=== PATIENT | male | born 1955 | race Caucasian/White ===

== ENCOUNTER 2024-09-04 11:39 | Emergency (ER) | payer OTHER, SELFPAY ==
[2024-09-04] VITALS (18 sets, daily range): BP systolic 161–178; BP diastolic 67–90; BMI 21.8
[2024-09-04 11:52] LABS: Glucose - Point of Care 113 mg/dl (70-99)
[2024-09-04 12:20] LABS: % Basophils 0.7 % (0-2); % Eosinophils 0.8 % (0-6); % Immature Granulocytes 0.5 % (0-0.5); % Monocytes 12.7 % (1.7-9.3); % Neutrophils 65.3 % (42.2-75.2); Absolute Basophils 0.1 10^3/uL (0-0.2); Absolute Eosinophils 0.1 10^3/uL (0-0.7); Absolute Lymphocytes 1.5 10^3/uL (1.2-3.4); Absolute Monocytes 0.9 10^3/uL (0.1-0.6); Absolute Neutrophils 4.8 10^3/uL (1.4-6.5); Hematocrit 23.5 % (39.0-52.0); Mean Corp Hgb Conc. 25.5 g/dL (33.0-37.0); Mean Corpuscular Hgb 14.9 pg (27.0-31.0); Mean Corpuscular Volume 58.2 fL (80.0-94.0); Mean Platelet Volume 8.1 fL (7.4-10.4); Nucleated Red Blood Cells % 0 % (-); Platelet Count 269 10^3/uL (130-400); Red Blood Cell Count 4.04 10^6/uL (4.70-6.10); Red Cell Dist. Width 23.2 % (11.5-14.5); White Blood Cell Count 7.3 10^3/uL (4.8-10.8)
[2024-09-04 12:22] LABS: ALT (SGPT) 16 U/L (0-50); AST (SGOT) 25 U/L (17-59); Albumin 4.5 g/dl (3.5-5.0); Alkaline Phosphatase 63 U/L (38-126); Blood Urea Nitrogen 27 mg/dl (9-20); Calcium 8.8 mg/dl (8.4-10.2); Carbon Dioxide 24 mmol/L (22-30); Chloride 103 mmol/L (98-107); Glucose 109 mg/dl (70-99); Potassium 4.8 mmol/L (3.5-5.1); Sodium 136 mmol/L (135-145); Total Bilirubin 0.4 mg/dl (0.2-1.3); Total Protein 7.4 g/dl (6.3-8.2); eGFR > 60.00
--- NOTE | 2024-09-04 13:55 | ED.GENMED ---
History of Present Illness
<Zuleika Kimball [employer] - Last Filed: 09/04/24 19:40>
General
Chief Complaint: Change in Mental Status
Source: patient
Exam Limitations: none
Time Seen by Provider: 09/04/24 13:53
Nursing documentation reviewed up to this point in time: agreed with
History of Present Illness
History of Present Illness:
69-year-old male with remote history of 'stomach problems' on 'something like Pepcid' presents for feeling 'I was up at the barn and I got a little wobbly.' with him states he started to have garbled speech, he denies this and states it was
his dentures that were loose.
Pt has been constipated past few months and is taking Metamucil past week, denies change in color of stools.
States he gets SOB but this is nothing new, he has felt this since being in ICU for Covid 4 years ago.
Denies CP, Abd pain, n/v/d.
Denies headache, weakness in extremities.
Past History
<Zuleika Kimball, [employer] - Last Filed: 09/04/24 19:40>
Past History
ED Past Medical History: None
ED Past Surgical History: None
Social History
Tobacco: Former smoker
Alcohol: None
Personal:
Living: with family
Employment: Retired
Review of Systems
<Zuleika Kimball, [employer] - Last Filed: 09/04/24 19:40>
Review of Systems
Allergies reviewed?: Yes
All Other Systems: ROS reviewed and negative except as documented in HPI and ROS
Constitutional: Denies fever or fatigue
Respiratory: Reports trouble breathing (chronic SOB since having Covid 4 years ago, nothing new.); Denies cough
Cardiac: Denies chest pain, diaphoresis, palpitations or syncope
ABD/GI: Reports constipated; Denies abdominal pain, nausea, vomiting, diarrhea, bloody stools, black stools or anorexia
: Denies dysuria, frequency or difficulty voiding
Skin: Reports no symptoms
Neurological: Reports no symptoms
Phy Exam
<Zuleika Kimball, [employer] - Last Filed: 09/04/24 19:40>
Physical Exam
Physical Exam:
GENERAL: No acute distress. A&Ox3.
CONSTITUTIONAL: Afebrile.
EYES: clear, conjunctivae normal
ENMT: moist mucus membranes, Pharynx nl
RESPIRATORY: Regular respirations, nonlabored, lungs clear.
CARDIOVASCULAR: Regular rate and rhythm, no murmurs, no rubs.
GI: Soft, nontender, normal BS
Rectal: light brown stool, heme negative
MUSCULOSKELETAL: Moves with ease. Well perfused.
SKIN: Warm, dry, pink
PSYCH: Normal mood and affect. Well kept, interactive and appropriate
NEUROLOGIC: Awake, alert and oriented. No focal neurological deficits
Course
<Zuleika Kimball, [employer] - Last Filed: 09/04/24 19:40>
Orders/Labs/Results
Orders:
Orders
09/04/24 11:45
CT Head W/o Iv Contrast Urgent
Comment:
Reason For Exam: change in mental status
09/04/24 11:49
Complete Blood Count/With Diff Urgent
Comprehensive Metabolic Panel Urgent
09/04/24 14:13
Vitamin B12 Urgent
09/04/24 14:16
Type And Crossmatch [Type+Screen] Urgent
09/04/24 14:28
* Blood Bank Products Urgent
Blood Bank Products: *Packed RBC Leuko(PRBC's)
Quantity: 2
Transfuse Today: Yes
Reason: Anemia
IV Insert/Care/Rem.- Treatment PRN
09/04/24 15:17
ABO2 Urgent
BBK Wristband Number:
Associate notified that ABO2 has been ordered: ATIFF-ER
Date: 09/04/24
Time: 14:25
Buildings And Grounds Director ID: [id number]
Abnormal Lab Results
09/04/24 09/04/24 09/04/24
11:49 11:50 14:16
RBC 4.04 L 10^6/uL
(4.70-6.10)
Hgb 6.0 L* g/dL
(13.0-18.0)
Hct 23.5 L %
(39.0-52.0)
MCV 58.2 L fL
(80.0-94.0)
MCH 14.9 L pg
(27.0-31.0)
MCHC 25.5 L g/dL
(33.0-37.0)
RDW 23.2 H %
(11.5-14.5)
Absolute Monos (auto) 0.9 H 10^3/uL
(0.1-0.6)
Lymphocytes % 20.0 L %
(20.5-51.1)
Monocytes % 12.7 H %
(1.7-9.3)
BUN 27 H mg/dl
(9-20)
Glucose 109 H mg/dl
(70-99)
POC Glucose 113 H mg/dl
(70-99)
Crossmatch IS Only See Detail
09/04/24 11:49
09/04/24 11:49
Vital Signs
Initial and Last Documented VS:
Initial Vital Signs
Temp Pulse Resp BP Pulse Ox
98.3 F 64 16 163/75 99
09/04/24 11:41 09/04/24 11:41 09/04/24 11:41 09/04/24 11:41 09/04/24 11:41
Last Documented Vital Signs
Temp Pulse Resp BP Pulse Ox
97.8 F 60 14 161/67 99
09/04/24 19:11 09/04/24 19:11 09/04/24 19:11 09/04/24 19:11 09/04/24 19:00
Type Rolling Machine Operator consulted with Physician
Type Rolling Machine Operator consulted with physician?: Yes
Name of Physician Consulted: Toby
<Laurie Luis MD - Last Filed: 09/04/24 14:59>
Orders/Labs/Results
Orders:
Orders
09/04/24 11:45
CT Head W/o Iv Contrast Urgent
Comment:
Reason For Exam: change in mental status
09/04/24 11:49
Complete Blood Count/With Diff Urgent
Comprehensive Metabolic Panel Urgent
09/04/24 14:13
Vitamin B12 Urgent
09/04/24 14:16
Type And Crossmatch [Type+Screen] Urgent
09/04/24 14:28
* Blood Bank Products Urgent
Blood Bank Products: *Packed RBC Leuko(PRBC's)
Quantity: 2
Transfuse Today: Yes
Reason: Anemia
IV Insert/Care/Rem.- Treatment PRN
09/04/24 15:17
ABO2 Urgent
BBK Wristband Number:
Associate notified that ABO2 has been ordered: ATIFF-ER
Date: 09/04/24
Time: 14:25
Buildings And Grounds Director ID: [id number]
Abnormal Lab Results
09/04/24 09/04/24 09/04/24
11:49 11:50 14:16
RBC 4.04 L 10^6/uL
(4.70-6.10)
Hgb 6.0 L* g/dL
(13.0-18.0)
Hct 23.5 L %
(39.0-52.0)
MCV 58.2 L fL
(80.0-94.0)
MCH 14.9 L pg
(27.0-31.0)
MCHC 25.5 L g/dL
(33.0-37.0)
RDW 23.2 H %
(11.5-14.5)
Absolute Monos (auto) 0.9 H 10^3/uL
(0.1-0.6)
Lymphocytes % 20.0 L %
(20.5-51.1)
Monocytes % 12.7 H %
(1.7-9.3)
BUN 27 H mg/dl
(9-20)
Glucose 109 H mg/dl
(70-99)
POC Glucose 113 H mg/dl
(70-99)
Crossmatch IS Only See Detail
09/04/24 11:49
09/04/24 11:49
Vital Signs
Initial and Last Documented VS:
Initial Vital Signs
Temp Pulse Resp BP Pulse Ox
98.3 F 64 16 163/75 99
09/04/24 11:41 09/04/24 11:41 09/04/24 11:41 09/04/24 11:41 09/04/24 11:41
Last Documented Vital Signs
Temp Pulse Resp BP Pulse Ox
97.8 F 60 14 161/67 99
09/04/24 19:11 09/04/24 19:11 09/04/24 19:11 09/04/24 19:11 09/04/24 19:00
<Zuleika Kimball, [employer] - Last Filed: 09/04/24 19:40>
MDM/Problems Addressed
Differential Diagnosis Includes:
dehydration, GI bleed, iron deficiency anemia
MDM/Problems Addressed:
69-year-old male with remote history of 'stomach problems' on 'something like Pepcid' presents for feeling 'I was up at the barn and I got a little wobbly.' with him states he started to have garbled speech, he denies this and states it was
his dentures that were loose.
Pt has been constipated past few months and is taking Metamucil past week, denies change in color of stools.
States he gets SOB but this is nothing new, he has felt this since being in ICU for Covid 4 years ago.
Denies CP, Abd pain, n/v/d.
Denies headache, weakness in extremities.
Afebrile, AA&O, pleasant. NAD
2:15 p.m.
CBC: Hgb 6.0 with indices indicating severe microcytic/hypochromic anemia. No indication for GI Bleed, stool heme neg
CMP: BUN [address] no other abnormality
Head CT: nothing acute.
7:15 p.m.
PRBCs infused, no adverse reaction
No no sign of acute bleeding. Anemia more likely chronic
Case discussed with Dr. Luis who agrees pt can be discharged after PRBCs infused.
Pt states he will F/U with his PCP, return instructions reviewed with pt and family
All are comfortable with discharge.
<Zuleika Kimball NP - Last Filed: 09/04/24 19:40>
*Critical Care Note
Total Time (30-74mins, 75-104mins- exclusive of procedures): Not Applicable
ED Attending Note
<Zuleika Kimball NP - Last Filed: 09/04/24 19:40>
-
Portions of this chart may have been created with voice recognition software.� Occasional wrong word or��sound alike� substitutions may have occurred due to the inherent limitations of voice recognition software.
<Laurie Luis MD - Last Filed: 09/04/24 14:59>
ED Attending Note
Patient seen and examined by attending physician: Yes
I performed the substantive portion of visit, reviewed & personally made and approve the management plan that is documented in note by myself or HAYDEE.: Yes
ED Attending Note:
69 yr old male, was about to get on horse and felt 'a little wobbly', no vertigo/spinning, no loc. This was short lived and went away spontaneously. At about this time, said that for a convereastino he seemed to have funny speech...pt recalls
this and insists b/c his plate was misaligned, states 'it was falling down!'. No n/t/focal weakness/cp/sob/neck pain/headache/visual changes/n/v or other comlnts. No sxs now. Hgb noted, no prior to compare, no hx of heavy nsaid use/gastritis.
Sees a doctor regularly. Unaware of hx of anemia. He is very eager/determined to go home and promises he will have close f/u. Agreeable to transfusion. Will rted if he develops ANY sxs. His at bedside has stage IV breast ca, they both
request that he do outpt eval. Given no sxs, nl vitals, no bleed...we cautiously advise that if he does this, f/u must be kian. He is agreeable. Will tx 2U before d/c and reassess.
Discharge Plan
Departure
Patient Disposition: Home (Routine Discharge)
Date of Disposition: 09/04/24
Time of Disposition: 19:24
Patient with high blood pressure during this ER visit?: No
Condition: Good
Discharge Problem:
Anemia
Instructions: Anemia caused by low iron in adults - Discharge instructions
Referrals:
[facility] [Other] - Call in 1-3 days for appt
UNKNOWN - PT DOES,NOT KNOW [Family Provider] -
Activity Restrictions/Additional Instructions:
As we discussed, see your primary doctor next week and discuss your lab work.
You have no sign of bleeding at this time.
Your low blood count is most likely iron deficiency
Return here immediately for signs of GI bleeding such as dark or black stools, bloody stools, vomiting blood or dark material, feeling lightheaded, or sicker in any way.
You received 2 units of Packed Red Blood Cells here.
Interventions
Interventions:
*Risk Screen - Suicide Last Done: 09/04/24 13:59
*General Assessment Last Done: 09/04/24 13:59
*Neglect/Abuse Screening Last Done: 09/04/24 13:59
ED- Fall Risk Assessment Last Done: 09/04/24 13:59
*ED COVID-19 Vaccine History Last Done: 09/04/24 13:59
ED- Neurological Assessment Last Done: 09/04/24 13:59
ED Swallowing Screen Last Done: 09/04/24 14:29
Discharge Date and Time
Print Language: YI
== END 2024-09-04 20:08 | disposition home or self-care (01) ==
LOC: EMR 11:39
PROVIDERS: EMERGENCY PHYSICIAN Emergency Medicine
DX: D50.9 Iron deficiency anemia, unspecified (principal); Z87.891 Personal history of nicotine dependence
CPT/HCPCS: 99284; 70450; 80053; 82962; 85025; 86850; 86900; 86901; 86920; 99283; P9016